=== PATIENT | male | born 1995 | race Two or more races ===

== ENCOUNTER 2020-11-25 10:22 | Emergency (ER) | payer OTHER ==
[2020-11-25 10:57] VITALS: BP 105/83; PULSE 95; TEMP 98.8; BMI 65.1
[2020-11-25] MEDS ORDERED: predniSONE 20 MG TABLET (UD) PO ONE (11:47)
[2020-11-25] MEDS ORDERED: ALBUTEROL SO4 2.5/IPRATROPIUM 0.5 INH SOL 3 ML VIAL.NEB. NEB SCH (12:00)
[2020-11-25] MEDS ORDERED: predniSONE 20 MG TABLET (UD) ONE (12:47)
[2020-11-25] MEDS ORDERED: ALBUTEROL SO4 2.5/IPRATROPIUM 0.5 INH SOL 3 ML VIAL.NEB. NEB ONE (12:47)
== END 2020-11-25 15:35 | disposition home or self-care (01) ==
LOC: JER 10:22
PROC: 3E0F7GC Introduction of Other Therapeutic Substance into Respiratory Tract, Via Natural or Artificial Opening (ICD-10-PCS; principal; 2020-11-25)
DX: J20.9 Acute bronchitis, unspecified (principal); Z11.52 Encounter for screening for COVID-19
CPT/HCPCS: 71046-TC-FY; 94640; 99284-25; C9803; U0003; U0005